=== PATIENT | female | born 1940 | race Caucasian/White ===

== ENCOUNTER 2020-07-02 09:58 | Inpatient (IN) | payer MEDICARE ==
[~2020-07-02] VITALS: Ht 165.1 cm; Wt 88.8 kg
[2020-07-02] MEDS ORDERED: MAGNESIUM OXID250 MG PO (12:55)
[2020-07-02] MEDS ORDERED: COZAAR50 MG PO (12:55)
[2020-07-02] MEDS ORDERED: JANUVIA100 MG PO (12:57)
[2020-07-02] MEDS ORDERED: OMEPRAZOLE PO (12:57)
[2020-07-02] MEDS ORDERED: LEVOXYL100 MCG PO (12:58)
[2020-07-02] MEDS ORDERED: MULTI-DAY VITAM1 TAB PO (12:58)
[2020-07-02] MEDS ORDERED: COENZYME Q10100 MG PO (12:59)
[2020-07-02] MEDS ORDERED: PRAVACHOL40 MG PO (12:59)
[2020-07-02] MEDS ORDERED: PIOGLITAZONE15 MG PO (13:00)
[2020-07-02] MEDS ORDERED: LEXAPRO20 MG PO (13:00)
[2020-07-02] MEDS ORDERED: ULTRAM50 MG PO (13:02)
[2020-07-02 14:25] LABS: ALBUMIN 3.8 g/dL (3.4-5.0); ANION GAP 10.6 mmol/L (8-16); BILIRUBIN - TOTAL 0.56 mg/dL (0.2-1.3); CALCIUM 9.4 mg/dL (8.5-10.1); CARBON DIOXIDE 32.4 mmol/L (21.0-32.0); CHOL - HDL RATIO 2.5 ratio (2.3-4.1); LDL-HDL RATIO 1.3 ratio (1.5-3.5); PROTEIN - SERUM 7.8 g/dL (6.4-8.2); THYROID STIMULATING HORMONE 4.31 uIU/mL (0.36-3.74)
[2020-07-02 19:53] VITALS: BP 145/62; BMI 32.7
[2020-07-02 20:00] VITALS: BP 143/54
--- NOTE | 2020-07-02 20:24 | NUR ---
NEW ADMIT TO DR VICK FROM [facility] ED FOR TO ALTERED MENTAL STATUS RELATED TO SELF INFLICTED STAB WOUNDS ON HER UPPER ABDOMINAL AREA. PT RECEIVED [facility]. CALM AND COOPERATIVE UPPON ADMIT. VERY CONFUSED. PT FAMILY CALL AND ADMIT CONSENT RECEIVED FROM CHAD EDWARD. CODE OF FULL CODE RECEIVED. PT ORIENTED TO UNIT. VISUAL HALLUCINATIONS. LAB RESULTS FROM [facility] IN PAPER CHART. CBC, U/A AND COVID. YELLING AT STAFF AT TIMES. HITTING BROWN. COOPERATIVE WITH ADMIT ASSESSMENT.
--- NOTE | 2020-07-03 01:14 | NUR ---
RECEIVED IN HALLWAY OUTSIDE OF NURSES STATION. VERY CONFUSED. ATTEMPTS TO STAND WITHOUT ASSIST. APPEARS TO BE VERY HAPPY AT THIS TIME. LAUGHING AT TIMES. CALM AND COOPERATIVE WITH CARE AND ASSESSMENT. REDIRECT AND REORIENT NEEDED. RESTING QUIETLY IN BED AT THIS TIME. CONTINUE PLAN OF CARE.
[2020-07-03 06:11] LABS: RAPID PLASMA REAGIN Non Reactive (Non Reactive)
[2020-07-03 11:08] VITALS: Ht 165.1 cm; Wt 88.8 kg
--- NOTE | 2020-07-03 15:30 | PSY ---
PATIENT NAME:DENYS EDWARD MEDICAL RECORD: [id number] : 44 LOCATION:ABEL Medina1125 ADMISSION DATE: 07/02/20 ACCOUNT: [id number] PSYCHIATRIC EVALUATION DATE OF EVALUATION: 07/02/20 IDENTIFYING DATA: The patient is 80 years old and she is admitted to the hospital on a voluntary basis. CHIEF COMPLAINT: None. HISTORY OF PRESENT ILLNESS: The patient has a long history of dementia. She is living with her son here in [place]. Apparently, she got up in the night, fell in the kitchen and somehow was able to get a knife out of a drawer off the cabinet and when the son found her, she was trying to stab herself in the stomach and said she wanted to . Apparently, she repeated this to other people. Currently, she is calm, cooperative, impaired cognitively, but says that she had a knife and was simply trying to carve or get something red off of her skin. I am not sure what she means. The injury is not at all serious, but the statements were of concern. She is now backing away from that. I do not think it is anything manipulative. She is very impaired and actually only oriented to person. PAST MEDICAL HISTORY: Significant for diabetes, hyperlipidemia, hypothyroidism. PAST PSYCHIATRIC HISTORY: Significant for an established diagnosis of dementia that was made approximately 5 years ago. The patient currently is taking psychoactive medications, although the exact reasons for this are unclear. FAMILY HISTORY: Unknown. ALLERGIES: LISINOPRIL, CODEINE, AND ASPIRIN. CURRENT MEDICATIONS: Include Cozaar, Januvia, Levoxyl, Pravachol, and Lexapro. SOCIAL HISTORY: The patient is . Her in 2010. She has 2 children, only one of whom is involved with her care. She lives with that son. She has no history of drug or alcohol abuse and is a former cigarette smoker. 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 She has no history of legal entanglements. MENTAL STATUS EXAMINATION: The patient is awake, alert and oriented to person only. Her mood is euthymic. Her affect appropriate. Thought processes are goal directed. Memory, concentration and abstraction abilities are impaired. She denies that she would seek to harm herself or others as well as psychotic symptoms. ASSESSMENT: AXIS I: Major neurocognitive disorder of the Alzheimer's type with behavioral disturbances. AXIS II: None. AXIS III: Hypertension, hypothyroidism, diabetes, hyperlipidemia. AXIS IV: Moderate stressors. AXIS V: Global assessment of functioning is 30. PLAN: At this time, the patient in my view is not suffering from a mood disorder nor is she actively suicidal. I do not have any issues with her taking an antidepressant medication, but her primary problem is behavioral and related to a dementing illness. She will be comprehensively evaluated and treated with both mood stabilizing and memory enhancing medications. TRANSINT:[id number] Voice Confirmation ID: [id number] DOCUMENT ID: [id number] RYAN VICK MD at 1530 CC: [id number] DICTATION DATE: 07/02/20 1616 FLOWER POT PRESS OPERATOR: 07/02/20 1847 ADM IN [facility] [address] [id number]
--- NOTE | 2020-07-03 17:30 | NUR ---
RECEIVED IN PATIENTS ROOM. RESTING IN BED WITH EYES OPEN. CALM AND COOPERATIVE WITH CARE AND ASSESSMENT. VERY CONFUSED. DENIES SUICIDAL IDEATION AT THIS TIME. REDIRECT AND REORIENT NEEDED. EATING DINNER AT THIS TIME. COTNINUE PLAN OF CARE.
[2020-07-03 20:00] VITALS: BP 147/53
--- NOTE | 2020-07-03 20:54 | NUR ---
RECEIVED IN BEDROOM. RESTING IN BED WITH EYES CLOSED. RESPONDS TO VOICE. VERY CONFUSED. CALM AND COOPERATIVE WITH CARE AND ASSESSMENT.NO SIGNS OF AGGRESSION. NO STATEMENTS OF SELF HARM VOICED. REDIRECT AND REORIENT NEEDED. ENCOURAGE TO EXPRESS NEEDS. RESTING QUIETLY IN BED AT THIS TIME. CONTINUE PLAN OF CARE.
[2020-07-04 08:32] VITALS: BP 137/60
--- NOTE | 2020-07-04 16:06 | PN ---
PATIENT:DENYS EDWARD MEDICAL RECORD: [id number] LOCATION:ABEL [facility]om[facility]112 ADMISSION DATE: 07/02/20 PROGRESS NOTE DATE OF SERVICE: 07/03/2020 SUBJECTIVE: The patient's case was discussed with staff. She has no new complaint. OBJECTIVE: The patient is convinced that she is in trouble with the police, but I cannot understand why. She believes that they are going to arrest her. Yesterday, she was very delusional and angry, banging on the dewitt, threatening, yelling and saying she was going to kill staff. ASSESSMENT: Dementia. PLAN: The patient is very confused and unable to process her situation, which frightens her. I am going to treat her with Jasdon. Her long-term prognosis is guarded. TRANSINT:[id number] Voice Confirmation ID: [id number] DOCUMENT ID: [id number] RYAN VICK MD at 1606 CC: [id number] DICTATION DATE: 07/03/20 170 TEMPERATURE REGULATOR: 07/04/20 0027 ADM IN [facility] [address] [place] [address]
--- NOTE | 2020-07-04 16:10 | NUR ---
Nutrition Follow-up: Diet: Diabetic PO intake: 100% x last 5 meals Last BM: none since admit Wt: 196.4# (07/03/20) Meds noted: APRIL dominique No new chem labs Recommend continue current diet. RD will follow-up within 7 days.
--- NOTE | 2020-07-04 17:03 | NUR ---
ORIENTED TO SELF ONLY.DIFFICULT TO REDIRECT.IS COMPLIANT WITH MEDS.PARTICIPATES IN ACTIVITIES.DENIES SUICIDAL THOUGHTS.WILL CONTINUE WITH CURRENT PLAN OF CARE,MONITOR FOR CHANGES AND SAFETY.
--- NOTE | 2020-07-04 17:40 | NUR ---
RECEIVED IN PATIENT ROOM. SITTING ON SIDE OF BED. CALM AND COOPERATIVE WITH CARE AND ASSESSMENT. DENIES SUICIDAL IDEATION. STATED SHE WAS STABBING HERSELF WITH A KNIFE TO GET HER SONS ATTENTION BECAUSE SHE DIDNT THINK HE RESPONDED TO HER FAST ENOUGH. STATED ITS REALLY HIS FAULT THAT SHE IS IN HERE. REDIRECT AND REORIENT NEEDED. EATING DINNER AT THIS TIME. CONTINUE PLAN OF CARE.
[2020-07-04 20:00] VITALS: BP 165/57
--- NOTE | 2020-07-04 21:33 | NUR ---
PT IS ALERT AND ORIENTED TO SELF ONLY. VERY CONFUSED ABOUT WHERE SHE IS. STATES "THAT PERSON THERE IS TRYING TO GET EVERYONE TO BED SO THEY CAN KILL THEM." VERY UNSTEADY WHEN AMBUALTING. WANDERING THE HALLS . DIFFICULT TO REDIRECT. COMPLIANT WITH ALL MEDICATIONS. RESTING CALMLY IN BED AT THIS TIME.
[2020-07-05 09:42] VITALS: BP 137/87
--- NOTE | 2020-07-05 12:17 | NUR ---
PT SON CALLED. PASSCODE GIVEN. HE STATED HE WANTED TO SPEAK WITH HER AND LET HER KNOW HE WOULD BE VISITING TODAY." NURSE STATED AT THIS TIME IT WAS NOT PHONE CALL TIME AND SHE WOULD PASS THE MESSAGE TO PT AT THIS TIME. HE WANTED TO LET HER KNOW HE WAS COMING TO VISITATION THIS SHIFT. NURSE TOLD PT AT THIS TIME.
--- NOTE | 2020-07-05 13:09 | PN ---
PATIENT:DENYS EDWARD MEDICAL RECORD: [id number] LOCATION:ABEL Medina112 ADMISSION DATE: 07/02/20 PROGRESS NOTE DATE OF SERVICE: 07/04/2020 SUBJECTIVE: The patient's case was discussed with staff. She has no new complaint. OBJECTIVE: The patient is denying any thoughts of harming herself or others. She did eat and sleep well yesterday and has been compliant with medications. This patient has a dementia that is actually advanced. The history is entirely consistent with that, although I believe her family has no understanding of that and will require some education and advising. PLAN: I am going to start her on Namenda for her cognitive impairment. She is most definitely going to require 24-hour a day supervision. TRANSINT:[id number] Voice Confirmation ID: [id number] DOCUMENT ID: [id number] RYAN VICK MD at 1309 CC: [id number] DICTATION DATE: 07/04/201751 BEAD WIRE INSULATOR: 07/04/20 1027 ADM IN [facility] [address] [place] [address]
--- NOTE | 2020-07-05 17:58 | NUR ---
Patient was rec'd up this am in [facility]. She is A/O times 2 to person and to situation. She has participated in group activities and therapy. She is calm and cooperative but very confused at times. She likes to sit and interact with the other female patients and talk about old times. She is med compliant and took her meds whole. She has shown no aggression or aggitation toward staff or other patients. She had a family visitor today and was very interacting but became very confused when he left.She is slightly unsteady with ambulation.
[2020-07-05 20:00] VITALS: BP 135/48
--- NOTE | 2020-07-05 21:12 | NUR ---
PT IS ALERT AND ORIENTED TO SELF AND SITUATION. SHE RELATES THAT SHE IS IN THE HOSPITAL BUT IS CONCERNED WITH GETTING HER PURSE BACK. INFORMED HER THAT ALL OF HER ITEMS WOULD BE RETURNED AT DISCHARGE. OVERHEARD HER TALKING TO ANOTHER PATIENT STATING "MY MIGHT WANT TO KILL ME YA KNOW?" DIFFICULT TO REDIRECT. COMPLIANT WITH ALL MEDICATIONS. UNSTEADY GAIT. MONITOR FOR SAFETY.
[2020-07-06 09:34] VITALS: BP 141/61
--- NOTE | 2020-07-06 14:32 | NUR ---
PATIENT MIN ASST TO STAND AND WALK WITH WALKER WITH MIN ASST FOR 120 FEET.
--- NOTE | 2020-07-06 18:23 | NUR ---
pt sitting in [facility] confused telling staff someone told her to get the paper from staff and work on it. when staff attempted to redirect pt started yelling in tech face. pt has been pacing in [facility]. pt is restless and still stating the staff is trying to kill me." pt can be difficult to redirect. poor insight to situation. compliant with meds, vitals and assessments. toileting cues q 2 hr and prn. compliant with meds, vitals and assessments. will cont plan of care.
[2020-07-06 20:00] VITALS: BP 188/69
--- NOTE | 2020-07-06 23:29 | NUR ---
B)RECEIVED PATIENT SITTING IN THE DAYROOM WITH FEMALE PEERS. ALERT AND ORIENTED TO PERSON, PLACE AND DAY OF WEEK. POOR INSIGHT INTO THE REASON FOR HOSPITALIZATION RELATING "I SAID SOMETHING TODAY TO A GIRL I SHOULDN'T OF SAID. IT WAS HER BIRTHDAY AND I WANTED TO GIVE HER ICE CREAM." COOPERATIVE WITH STAFF. I)ADMINISTER MEDS AND MONITOR COMPLIANCE. REORIENT NEEDED. R)MED COMPLIANT. POOR REORIENTATION DUE TO IMPAIRED ABILITY TO COMPREHEND, PROCESS AND RETAIN INFORMATION. DENIES SI. P)CONTINUE POC AND PROVIDE SAFE ENVIRONMENT.
[2020-07-07 08:00] VITALS: BP 153/62
--- NOTE | 2020-07-07 15:57 | NUR ---
PT SON IS HERE VISITING AT THIS TIME.
--- NOTE | 2020-07-07 16:28 | NUR ---
SON HERE TO VISIT WITH PATIENT.
--- NOTE | 2020-07-07 16:44 | NUR ---
ALERT, CALM, COOPERATIVE, STATED THAT SHE IS GOING HOME TODAY. MEDS ADMIN PER ORDERS WITH COMPLETE COMPLIANCE NOTED. AT THIS TIME, CONTINUES TO VISIT WITH SON. PT AROSE FROM TABLE A FEW TIMES AND STATED THAT SHE WAS READY TO LEAVE. SON RE-DIRECTED. NO HOSTILITIES BETWEEN THE TWO WERE OBSERVED. MEDS ADMIN AT SCHEDULED TIMES WITH COMPLETE COMPLIANCE NOTED. CONTINUE POC, MONITORING FOR ATTEMPTS AT SELF-HARM.
--- NOTE | 2020-07-07 19:19 | NUR ---
son requested a list of medications. nurse printed education for meds. nurse went over medications list with son at this time.
[2020-07-07 20:00] VITALS: BP 150/73
--- NOTE | 2020-07-07 23:58 | NUR ---
RECEIVED PATIENT IN DAYROOM, CONFUSED, ANXIOUS, ATTEMPTED TO CALM HER DOWN A FEW TIMES, SHE KEPT WANTING TO USE THE PHONE AND MAKE PAYMENTS. COMPLIANT WITH MEDS. WILLL FOLLOW POC
[2020-07-08 09:43] VITALS: BP 150/80
--- NOTE | 2020-07-08 14:53 | NUR ---
REC'D PT IN BED WITH EYES OPEN. AWAKE AND ALERT TO PERSON ONLY. CALM AND COOPERATIVE WITH ASSESSMENT. PRESCRIBED MEDICATIONS PROVIDED ORDERED. MED COMPLIANT. PT IS CONFUSED AND HAS LITTLE INSIGHT HER SITUATION AT THIS TIME. PT DENIES SI AT THIS TIME. REDIRECT AND REORIENT NEEDED. FALL PRECAUTIONS IN PLACE. WILL CPOC.
[2020-07-08 21:06] VITALS: BP 149/52
--- NOTE | 2020-07-08 21:18 | NUR ---
RECEIVED IN DAYROOM. SITTING IN A CHAIR WITH PEERS AT HER SIDE. PARANOIA. STATES THAT SOMOEN IS GOING TO KILL EVERYONE THERE. CALM AND COOPERATIVE WITH CARE AND ASSESSMENT. NO STATEMENTS OF SELF HARM VOICED. REDIRECT AND REORIENT NEEDED. CONTINUES TO BE PARANOID. CONTINUE PLAN OF CARE.
[2020-07-09 08:00] VITALS: BP 152/61
--- NOTE | 2020-07-09 11:28 | NUR ---
PATIENT WALKED 200 FEET WITH WALKER AND ALSO WITHOUT WITH JUST CGA.
--- NOTE | 2020-07-09 12:00 | NUR ---
Received patient sitting in hallway by the nurses station. Awake and alert to person. Patient has little insight into her situation at this time. Calm and cooperative with assessment at this time. Prescribed medications provided as ordered. Med compliant. Patient can become very tearful throughout the day. Redirect and reorient as needed. Fall precautions in place for safety. Will cpoc.
--- NOTE | 2020-07-09 13:46 | PN ---
PATIENT:DENYS EDWARD MEDICAL RECORD: [id number] LOCATION:ABEL Medina112 ADMISSION DATE: 07/02/20 PROGRESS NOTE DATE OF SERVICE: 07/05/2020 SUBJECTIVE: The patient's case was discussed with staff. She has no new complaint. OBJECTIVE: The patient is delusional. She has no thoughts of harming herself, but believes that some of the staff is planning to kill her. She has been restless and tearful. ASSESSMENT: Dementia. PLAN: It is my belief that the confused perceptual issues that the patient is having are related to an underlying dementing illness and not some fundamental mood or thinking disorder. I have started her on an antipsychotic medication. I think the medicine needs additional time to take effect. TRANSINT:[id number] Voice Confirmation ID: [id number] DOCUMENT ID: [id number] RYAN VICK MD at 1346 CC: [id number] DICTATION DATE: 07/05/20 1557 MICROCOMPUTER SUPPORT SPECIALIST: 07/05/206 ADM IN [id number] [place] [address]
--- NOTE | 2020-07-09 20:25 | NUR ---
RECEIVED IN HALLWAY. SITTING IN A CHAIR SOCILAIZING WITH STAFF AND PEERS. CALM AND COOPERATIVE WITH CARE AND ASSESSMENT. NO STATEMENTS OF SELF HARM VOICED. NO SIGNS OF AGGRESSION. REDIRECT AND REORIENT NEEDED. CONTINUES TO SIT CALMLY IN HALLWAY. CONTINUE PLAN OF CARE.
[2020-07-09 21:36] VITALS: BP 131/62
[2020-07-10 08:43] VITALS: BP 122/67
--- NOTE | 2020-07-10 09:37 | NUR ---
director workers compensation spoke to son, Brooks, to discuss discharge planning needs and discharge for 07/11/2020. director workers compensation set follow-up appointment with Sara Galnido on 07/24 and referred family to [facility]. Sara Galindo's office is going to do a home health referral on 07/24. This is due to home health not excepting patients with suicidal ideation, even if stable. Brooks voiced concerns of 13/10 caregiving. director workers compensation gave home instead as a resource for in-home caregiving. director workers compensation also went over the different levels of care and stated if the home environment is not appropriate after discharge, patient should be placed in a different level of care. Brooks then stated patient would have supervision from daughter, [id number], and himself. director workers compensation did go over communication techniques and techniques for redirection. director workers compensation explained patient is at her baseline due to the dementia progression. No other needs were voiced at this time.
--- NOTE | 2020-07-10 11:38 | NUR ---
PATIENT WAS ALREADY WALKING IN [place] INDEPENDENTLY WHEN PT CAME BY.
--- NOTE | 2020-07-10 16:04 | PN ---
PATIENT:DENYS EDWARD MEDICAL RECORD: [id number] LOCATION:ABEL Medina112 ADMISSION DATE: 07/02/20 PROGRESS NOTE DATE OF SERVICE: 07/09/2020 SUBJECTIVE: The patient's case was discussed with staff. She has no new complaint. OBJECTIVE: The patient is in good behavioral control. She has poor insight about her situation. ASSESSMENT: Dementia. PLAN: Current medicines have been reviewed. She has no thoughts of harming herself. She is quite impaired cognitively, but if this level of improvement continues, I would anticipate she could reasonably be transitioned back to a lower level of care. I am going to increase the dose of her Namenda. TRANSINT:[id number] Voice Confirmation ID: [id number] DOCUMENT ID: [id number] RYAN VICK MD at 1604 CC: [id number] DICTATION DATE: 07/09/20 1724 OFFLINE CUTTER: 07/09/20 2238 ADM IN [id number] [place] [address]
[2020-07-10] MEDS ORDERED: NAMENDA5 MG PO (16:12)
[2020-07-10] MEDS ORDERED: GEODON20 MG PO (16:12)
[2020-07-10] MEDS ORDERED: LEVOTHYROXINE125 MCG PO (16:13)
--- NOTE | 2020-07-10 17:31 | NUR ---
ORIENTED TO SELF ONLY.COMPLIANT WITH STAFF AND MEDS.VERY CONFUSED WITH POOR SHORT TERM MEMORY.WILL CONTINUE WITH CURRENT PLAN OF CARE,MONITOR FOR SAFETY AND CHANGES.
--- NOTE | 2020-07-10 21:36 | NUR ---
RECEIVED IN HALLWAY. WALKING TO TALK WITH MHT. CALM AND COOPERATIVE WITH CARE AND ASSESSMENT. NO STATEMENTS OF SELF HARM VOICED. CONFUSED. REDIRECT AND REORIENT NEEDED. RESTING IN BED WITH EYES CLOSED AT THIS TIME. CONTINUE PLAN OF CARE.
[2020-07-10 22:26] VITALS: BP 131/41
[2020-07-11 08:00] VITALS: BP 134/55
--- NOTE | 2020-07-11 12:28 | NUR ---
NUTRITION REASSESSMENT: COMMENTS: Patient continues eating well and can feed herself per MD. No weight loss. No new labs since 07/02. DIET: Diabetic Diet PO INTAKE: 96% avg for last 9 meals WEIGHT: 07/03-196.4 lbs; 07/08-199 lbs BM: x 2 on 07/09 SIG MEDS: Synthroid, Januvia, MVI, Pravastatin, Actos SIG LABS: None recorded since 07/02 RECOMMENDATIONS: Continue DM diet as tolerated RD to follow up within 7 days
--- NOTE | 2020-07-11 14:20 | NUR ---
PT SITTING AT TABLE AT THIS TIME. PT IS CALM AND COOPERATIVE. CONFUSION NOTED. REDIRECT AND REORIENT NEEDED. AMBULATES. CAN MAKE NEEDS KNOWN. COMPLIANT WITH MEDS, VITALS AND ASSESSMENTS. WILL CONT PLAN OF CARE.
--- NOTE | 2020-07-11 15:35 | PN ---
PATIENT:DENYS EDWARD MEDICAL RECORD: [id number] LOCATION:ABEL Medina112 ADMISSION DATE: 07/02/20 PROGRESS NOTE DATE OF SERVICE: 07/10/2020 SUBJECTIVE: The patient's case was discussed with staff. She has no new complaint. OBJECTIVE: The patient is in good behavioral control, confused and a little restless, but not disruptive. ASSESSMENT: Dementia. PLAN: The patient will be discharged home soon. Her long-term prognosis is guarded. TRANSINT:[id number] Voice Confirmation ID: [id number] DOCUMENT ID: [id number] RYAN VICK MD at 1535 CC: [id number] DICTATION DATE: 07/10/20 1611 SCHOOL ADJUSTMENT COUNSELOR: 07/10/20 2336 ADM IN [place] [id number] [place] [id number]
--- NOTE | 2020-07-11 17:30 | NUR ---
PT D/C WITH SON THIS SHIFT. NURSE WENT OVER MEDICATION LIST, PERSONAL BELONGINGS, COMMUNITY RESOURCES WITH NUMBERS AND ADDRESS, PAPER WORK TO TAKE TO THE DOCTOR, FOLLOW-UP APPT HIGHLIGHTED, NEW MEDICATIONS HIGHLIGHTED AND REVIEWED. NURSE STATED IF ANY OF THE MEDS DID NOT MAKE IT TO THE PHARMACY ON FILE TO ALERT STAFF AND STAFF WOULD CALL MEDICATIONS INTO PHARMACY. BARBI GOLD VERBALIZIED UNDERSTANDING TO ALL EDUCATION. ALL OF PT BELONGINGS SENT WITH PT AND REVIEWED WITH SON. NURSE ASSIST PT AND SON TO PERSONAL CAR AT FRONT OF HOSPITAL IN W/C. PT WAS NERVOUS ABOUT LEAVING THE OTHER PTS. REDIRECTED PTS BEHAVIOR. SUCCESSFUL AT THIS TIME. PT TOLERATING D/C WELL. ALL PAPERWORK FAXED AND RESOURCES SENT WITH SON AT THIS TIME.
--- NOTE | 2020-07-12 16:09 | DS ---
PATIENT:DENYS EDWARD :44 MEDICAL RECORD: [id number] DISCHARGE SUMMARY ADMISSION DATE: 07/02/20 DISCHARGE DATE: 07/11/20 The patient is 80 years old and she was admitted to the hospital on a voluntary basis. CHIEF COMPLAINT: None. HISTORY OF PRESENT ILLNESS: The patient has a long history of dementia. She is living with her son. Apparently, she had been up at night, fell in the kitchen and somehow got a knife out of the drawer and told her son when he found her that she was going to stab herself. She made some superficial scratches on her abdomen. She apparently repeated this to other people. She was brought to the Emergency Room and admitted here. HOSPITAL COURSE: The patient upon admission was clearly severely impaired. It is unclear why she was trying to cut herself with a knife. She did not injure herself seriously. It was unclear exactly why she was saying the things that she was saying, but it was quickly established that this was not a mood disorder but a dementing illness and that the behaviors, although extremely serious were again not related to an underlying mood disorder, but confused, distressed behavior in a person who cannot understand what is going on in her environment. She was treated with mood stabilizing and memory enhancing medications and showed improvement through the course of her hospitalization and was subsequently transitioned home with her son. DISCHARGE DIAGNOSES: AXIS I: Major neurocognitive disorder of the Alzheimer's type with behavioral disturbances. AXIS II: None. AXIS III: Hypertension, hypothyroidism, diabetes, hyperlipidemia. AXIS IV: Moderate stressors. AXIS V: Global assessment of functioning is 35. PLAN: At the time of discharge, the patient was in good behavioral control, had a completely euthymic mood and absolutely no thoughts of harming herself or others. She is in need of 24-hour a day supervision. I have concerns about the family's ability to provide the level of supervision she requires given her condition, but nevertheless, she will be discharged to home with the son who is sincerely interested in caring for and helping his mother. Follow up will be with her primary care physician. Again, there is no evidence of an underlying mood disorder of any significance. TRANSINT:[id number] Voice Confirmation ID: [id number] DOCUMENT ID: [id number] RYAN VICK MD at 1609 CC: [id number] DICTATION DATE: 07/11/20 1632 BREAKFAST AND ROOM ATTENDANT: 07/12/20 0112 DIS IN 07/11/20 [facility] [address] [id number]
== END 2020-07-11 16:50 | disposition home or self-care (01) | DRG 57 ==
LOC: D.PSYCH 09:58
PROVIDERS: ADMIT Psychiatry & Neurology Psychiatry; ATTEND Psychiatry & Neurology Psychiatry
DX: G30.1 Alzheimer's disease with late onset (principal); F02.81 Dementia in other diseases classified elsewhere, unspecified severity, with behavioral disturbance; I10 Essential (primary) hypertension; F32.9 Major depressive disorder, single episode, unspecified; E78.5 Hyperlipidemia, unspecified; E03.8 Other specified hypothyroidism; E06.3 Autoimmune thyroiditis; W19.XXXA Unspecified fall, initial encounter